=== PATIENT | female | born 1980 | race Caucasian/White ===

== ENCOUNTER 2017-08-17 18:46 | Emergency (ER) | payer OTHER ==
[2017-08-17] MEDS ORDERED: Ketorolac Tromethamine 60 MG/2 ML VIAL ONE (21:42)
== END 2017-08-17 22:12 | disposition home or self-care (01) ==
LOC: SCSER 18:46
DX: R51 Headache (principal); K21.9 Gastro-esophageal reflux disease without esophagitis; F41.9 Anxiety disorder, unspecified; F32.9 Major depressive disorder, single episode, unspecified; E11.9 Type 2 diabetes mellitus without complications
CPT/HCPCS: 93005; 96372; J1885

== ENCOUNTER 2018-02-16 01:09 | Emergency (ER) | payer BC, OTHER ==
[2018-02-16] MEDS ORDERED: Lidocaine Viscous Sol 2% 15 ml UD Cup ONE (01:56)
[2018-02-16] MEDS ORDERED: Mag-Al 1200 mg/1200 mg/30 ML UDCUP ONE (01:56)
[2018-02-16 02:09] LABS: #Basophils 0.1 thou/uL (0.0-0.2); #Eosinphils 0.2 thou/uL (0.0-0.7); #Lymphocytes 4.5 thou/uL (1.20-3.40); #Monocytes 0.5 thou/uL (0.11-0.59); #Neutrophils 4.6 thou/uL (1.40-6.50); %Basophils 0.6 % (0.0-1.0); %Eosinophils 2.4 % (0.0-10.0); %Lymphocytes 45.7 % (21.0-51.0); %Monocytes 4.6 % (0.0-10.0); %Neutrophils 46.7 % (42.0-75.0); Hemoglobin 14.1 g/dL (12.0-16.0); Mean Corpuscular HGB CONC 33.1 g/dL (32.0-36.0); Mean Corpuscular Hemoglobin 28.6 pg (27.0-31.0); Mean Corpuscular Volume 86.4 fL (78.0-98.0); Mean Platelet Volume 7.6 fL (7.4-10.4); Platelet Count 348 thou/uL (130-400); RBC Distribution Width 11.3 % (11.5-14.5); Red Blood Cell (RBC) Count 4.93 mill/uL (4.20-5.40); White Blood Cell (WBC) Count 9.9 thou/uL (4.8-10.8)
[2018-02-16 02:35] LABS: ALT (SGPT) 16 U/L (8-55); AST (SGOT) 18 U/L (5-34); Albumin 4.1 g/dL (3.5-5.0); Alkaline Phosphatase 73 U/L (40-150); Anion Gap 13 mmol/L (10-20); BUN (Urea Nitrogen) 9 mg/dL (7.0-18.7); Bilirubin, Total 0.2 mg/dL (0.2-1.2); Calc. Creatinine Clearance 0 mL/min (70-130); Calcium 9.9 mg/dL (7.8-10.44); Carbon Dioxide 23 mmol/L (22-29); Chloride 105 mmol/L (98-107); Estimated GFR-MDRD 80; Globulin 3.6 g/dL (2.4-3.5); Glucose 121 mg/dL (70-105); Lipase 39 U/L (8-78); Potassium 4.1 mmol/L (3.5-5.1); Protein, Total 7.7 g/dL (6.0-8.3); Sodium 137 mmol/L (136-145)
[2018-02-16 02:38] LABS: CKMB 0.4 ng/mL (0-6.6); Troponin I Less than 0.010 ng/mL (< 0.028)
--- NOTE | 2018-02-16 08:02 | RAD ---
LEFT SHOULDER RADIOGRAPHS 3 VIEWS: Date: 02/16/18 PROVIDED CLINICAL HISTORY: Left shoulder pain. FINDINGS: There is no evidence for fracture or other acute osseous abnormality. Glenohumeral relationship appea rs normal. Subacromial space is not optimally assessed due to projection. Coracoclavicular and acromi oclavicular distances appear normal. Visualized left lung field appears clear. IMPRESSION: No evidence for an acute osseous abnormality. If there is persistent clinical concern, conservative m anagement and follow-up imaging are advised. POS: [facility]
--- NOTE | 2018-02-16 08:03 | RAD ---
TWO VIEWS CHEST: HISTORY: Chest pain. FINDINGS: PA and lateral views of the chest were obtained. The lungs are well aerated. No evidence of active intrathoracic disease is seen. No evidence of effusions, pneumonia, or pneumothorax seen. IMPRESSION: Normal 2 views chest. POS: [facility]
--- NOTE | 2018-02-16 17:10 | EKG ---
Test Reason : Blood Pressure : / mmHG Vent. Rate : 065 BPM Atrial Rate : 065 BPM P-R Int : 178 ms QRS Dur : 082 ms QT Int : 414 ms P-R-T Axes : 020 063 028 degrees QTc Int : 430 ms Normal sinus rhythm Normal ECG Confirmed by MARIA L ONEAL, DR. Khan ([id number]) on 02/16/2018 5:10:13 PM Referred By: SARA SLAUGHTER Confirmed By:DR. Erin LISA MD
== END 2018-02-16 03:04 | disposition home or self-care (01) ==
LOC: ERS 01:09
DX: K21.9 Gastro-esophageal reflux disease without esophagitis (principal); M19.012 Primary osteoarthritis, left shoulder; F41.9 Anxiety disorder, unspecified; F31.9 Bipolar disorder, unspecified; G43.909 Migraine, unspecified, not intractable, without status migrainosus; Z79.899 Other long term (current) drug therapy
CPT/HCPCS: 36415; 71046; 80053; 82553; 83690; 84484; 85025; 93005

== ENCOUNTER 2018-06-28 11:31 | Emergency (ER) | payer OTHER, SELFPAY | END 2018-06-28 12:42 | disposition home or self-care (01) | LOC: ERS 11:31 | DX: J11.1 Influenza due to unidentified influenza virus with other respiratory manifestations (principal); R11.2 Nausea with vomiting, unspecified; G43.909 Migraine, unspecified, not intractable, without status migrainosus; K21.9 Gastro-esophageal reflux disease without esophagitis; F41.9 Anxiety disorder, unspecified; F32.9 Major depressive disorder, single episode, unspecified; Z79.899 Other long term (current) drug therapy | CPT/HCPCS: 99283 ==

== ENCOUNTER 2018-08-24 23:00 | Emergency (ER) | payer SELFPAY ==
[2018-08-24] MEDS ORDERED: Lorazepam 1 MG TAB PO SCH (23:30)
[2018-08-25] MEDS ORDERED: Lorazepam 1 MG TAB ONE (00:04)
== END 2018-08-25 01:55 | disposition home or self-care (01) ==
LOC: ERS 23:00
DX: F43.0 Acute stress reaction (principal); K21.9 Gastro-esophageal reflux disease without esophagitis; F41.9 Anxiety disorder, unspecified; F32.9 Major depressive disorder, single episode, unspecified; Z79.899 Other long term (current) drug therapy; Z79.891 Long term (current) use of opiate analgesic
CPT/HCPCS: 99283

== ENCOUNTER 2018-09-01 23:11 | Emergency (ER) | payer BC, SELFPAY | END 2018-09-02 00:55 | disposition home or self-care (01) | LOC: SCSER 23:11 | DX: F43.21 Adjustment disorder with depressed mood (principal); F32.9 Major depressive disorder, single episode, unspecified; K21.9 Gastro-esophageal reflux disease without esophagitis; F41.9 Anxiety disorder, unspecified; M79.7 Fibromyalgia; Z79.899 Other long term (current) drug therapy | CPT/HCPCS: 99283 ==